=== PATIENT | male | born 1965 | race Caucasian/White ===

== ENCOUNTER 2021-03-10 14:25 | Emergency (ER) | payer OTHER, SELFPAY ==
--- NOTE | ~2021-03-10 | XR_ITS ---
EXAMINATION: LEFT FOOT AND ANKLE X-RAY CLINICAL INFORMATION: Pain COMPARISON: None TECHNIQUE: 3 views of the left foot and 3 views of the left ankle FINDINGS: Left foot: Bone alignment is normal. No acute fracture or dislocation is seen. There is orthopedic hardware with a small plate and screws in the shaft of the first metatarsal bone and 2 screws in the calcaneus. 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 There are small calcaneal spurs. Soft tissues are otherwise unremarkable. Left ankle: Bone alignment is normal. No fracture or dislocation is seen. The ankle mortise is normal. Soft tissues are normal. XR/XR ankle LT 2V IMPRESSION: Left foot: Orthopedic hardware in the first metatarsal bone and calcaneus. 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 Left ankle: Unremarkable exam.
--- NOTE | ~2021-03-10 | XR_ITS ---
EXAMINATION: LEFT FOOT AND ANKLE X-RAY CLINICAL INFORMATION: Pain COMPARISON: None TECHNIQUE: 3 views of the left foot and 3 views of the left ankle FINDINGS: Left foot: Bone alignment is normal. No acute fracture or dislocation is seen. There is orthopedic hardware with a small plate and screws in the shaft of the first metatarsal bone and 2 screws in the calcaneus. 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 There are small calcaneal spurs. Soft tissues are otherwise unremarkable. Left ankle: Bone alignment is normal. No fracture or dislocation is seen. The ankle mortise is normal. Soft tissues are normal. XR/XR foot LT 2V IMPRESSION: Left foot: Orthopedic hardware in the first metatarsal bone and calcaneus. 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 Left ankle: Unremarkable exam.
[2021-03-10 15:20] VITALS: BP 154/100; PULSE 82; RESP 16; TEMP 36.9; O2SAT 96; BMI 50.1
[2021-03-10 17:31] VITALS: BP 141/72; PULSE 82; RESP 17; O2SAT 95
--- NOTE | 2021-03-10 17:43 | ED_ITS ---
HPI - Extremity Injury (Lower) General Chief Complaint: Extremity Injury, Lower Stated Complaint: ft pain - work injury Time Seen by Provider: 03/10/21 17:17 Source: patient Mode of arrival: ambulatory Limitations: no limitations History of Present Illness HPI Narrative: Patient presents to the ED for left foot pain after twisting ankle/foot while tripping over a box 1 week ago. patient states ever since having foot pain ever since. Patient denieshitting head or neck. Patient states no headache, nausea, abdominal pain, dizziness, chest pain, flank pain, or pain in other extremites. patient denies falling to the ground. Related Data Previous Rx's Medication Instructions Recorded cyclobenzaprine 10 mg PO TID PRN #18 tab 03/10/21 naproxen 500 mg PO BID PRN #20 tab 03/10/21 Allergies Allergy/AdvReac Type Severity Reaction Status Date / Time No Known Allergies Allergy Verified 03/10/21 17:29 Review of Systems Review of Systems: Yes all other systems are reviewed and are negative Constitutional: Constitutional: Reports as per HPI and Reports no additional constitutional complaints Eyes: Eyes: Reports as per HPI and Reports no additional eye complaints ENT: Reports system reviewed and no additional complaints, except as documented and Reports as per HPI Cardiovascular: Cardiovascular: Reports no additional cardiovascular complaints Respiratory: Respiratory: Reports as per HPI and Reports no additional respiratory complaints Gastrointestinal: Gastrointestinal: Reports as per HPI and Reports no additional gastrointestinal complaints Genitourinary: Genitourinary: Reports no additional male genitourinary complaints and Reports as per HPI Musculoskeletal: Musculoskeletal: Reports no additional musculoskeletal complaints, Reports as per HPI and Reports arthralgias (Left ankle/foot pain) Neurologic: Reports system reviewed and no additional complaints, except as documented and Reports as per HPI Psychiatric: Psychiatric: Reports no additional psychiatric complaints and Reports as per HPI [facility] Past Medical History Medical History (Updated 03/11/21 @ 00:01 by Background Daemon) Colitis Depression Hypertension Social History Social History Advance Directives: No Advance Directives Information Provided: No Physical Exam Vital Signs: Vital Signs: Last Vital Signs Temp 98.5 F 03/10/21 15:20 Pulse 82 03/10/21 17:31 Resp 17 03/10/21 17:31 BP 141/72 H 03/10/21 17:31 Pulse Ox 95 03/10/21 17:31 Body Mass Index 50.1 Const: General: cooperative, healthy appearing, comfortable, no acute distress, well developed, alert and awake Orientation/consciousness: patient oriented x3 HENMT: Head: Yes normal to inspection, Yes No palpable skull fracture present, Yes normocephalic, Yes atraumatic and No abrasion Eyes: General: appearance normal, both eyes and all related structures Neck: Neck: Yes normal visual inspection, Yes full ROM, Yes no lymphadenopathy, Yes no meningeal signs, Yes trachea midline, Yes supple and No tender Chest: Chest palpation & inspection: normal inspection of the chest and normal palpation of entire chest wall Resp: Effort & Inspection: normal respiratory effort and able to speak in comp lete sentences Auscultation: clear to auscultation bilaterally Cardio: Jugular venous distension: no JVD Heart sounds: S1 normal heart sound present and S2 normal heart sound present GI: Inspection: Yes normal to inspection and No abdominal wall ecchymosis Palpation (GI): Soft to palpation, not firm, nontender, no guarding and not rigid : General: No CVA tenderness and Yes no CVA tenderness Back/Spine/Pelvis: Back: no CVA tenderness, No CVA tenderness and No back tenderness Skin: General skin exam: no rashes or lesions noted and elasticity normal Neuro: General: patient oriented x3, no meningeal signs and CN's II-XI intact bilaterally Cranial nerves: Yes CN's II-XII intact bilaterally Extrem: Other: Left lower extremity: Lateral foot tenderness. negative for deformity or ecchymosis. pedal pulses intact. motor/neuro exam is intact. leg/thigh normal Psych: Appearance: grossly normal, well kempt and not disheveled Course Course Course Narrative: Patient will have lower extremity x-rays Reevaluation(s) Reevaluation #1: X-rays negative for fracture. Patient placed in [place] wrap discharged with pain meds MDM - Extremity Injury (Lower) MDM Narrative Medical decision making narrative: Foot sprain Discharge Plan Discharge Clinical Impression: Foot sprain Patient Disposition: Home, Self-Care Instructions: Foot Sprain (ED) Additional Instructions: Return to the ED immediately for any swelling of lower extremities, black bluish discoloration of toes, redness, calf pain, fever, chills, chest pain, shortness of breath, worsening pain of extremity, or any other concerning symptoms. Prescriptions: New naproxen 500 mg tablet 500 mg PO BID PRN (Reason: pain) Qty: 20 RF: 0 cyclobenzaprine 10 mg tablet 10 mg PO TID PRN (Reason: muscle spasm) Qty: 18 RF: 0 Stand Alone Forms: Work/School Release Interventions: ED Discharge Assessment Last Done: 03/10/21 18:08 Discharge Date/Time: 03/10/21 18:10 Print Language: Serbian
[2021-03-10] MEDS: Ibuprofen 800 MG TABLET PO (18:05)
== END 2021-03-10 18:10 | disposition home or self-care (01) ==
PROVIDERS: Emergency Provider Internal Medicine
DX: S93.602A Unspecified sprain of left foot, initial encounter (principal); W18.09XA Striking against other object with subsequent fall, initial encounter; Y93.89 Activity, other specified; Y92.512 Supermarket, store or market as the place of occurrence of the external cause; Y99.0 Civilian activity done for income or pay
CPT/HCPCS: 73600; 73620; 99283; 99284